=== PATIENT | female | born 1995 | race Caucasian/White ===

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

== ENCOUNTER 2017-01-20 23:22 | Emergency (ER) | payer MEDICAID ==
[~2017-01-20] VITALS: Ht 147.3 cm; Wt 81.5 kg
[2017-01-21 00:51] VITALS: BP 113/74
== END 2017-01-21 00:54 | disposition home or self-care (01) ==
LOC: ED 01-21 00:48
DX: H92.01 Otalgia, right ear (principal)
CPT/HCPCS: 99283

== ENCOUNTER 2017-04-19 19:14 | Emergency (ER) | payer MEDICAID ==
[~2017-04-19] VITALS: Ht 149.9 cm; Wt 81.7 kg
[2017-04-19 19:15] VITALS: BP 109/77
[2017-04-19] MEDS ORDERED: FAMOTIDINE 20 MG TABLET PO ONE (20:00)
[2017-04-19] MEDS ORDERED: FAMOTIDINE 20 MG TABLET ONE (20:01)
== END 2017-04-19 20:50 | disposition home or self-care (01) ==
LOC: ED 20:44
DX: L50.0 Allergic urticaria (principal)
CPT/HCPCS: 99283; J7512

== ENCOUNTER 2017-04-20 12:57 | Emergency (ER) | payer MEDICAID ==
[~2017-04-20] VITALS: Ht 149.9 cm; Wt 81.8 kg
[2017-04-20 12:58] VITALS: BP 110/74
[2017-04-20] MEDS ORDERED: FAMOTIDINE 20 MG TABLET ONE (13:20)
[2017-04-20] MEDS ORDERED: FAMOTIDINE 20 MG TABLET PO ONE (13:30)
== END 2017-04-20 13:31 | disposition home or self-care (01) ==
LOC: ED 13:24
DX: L50.9 Urticaria, unspecified (principal)
CPT/HCPCS: 99283

== ENCOUNTER 2017-06-11 18:41 | Emergency (ER) | payer MEDICAID, OTHER ==
[~2017-06-11] VITALS: Ht 149.9 cm; Wt 77.3 kg
[2017-06-11 18:54] VITALS: BP 126/85
[2017-06-11] MEDS ORDERED: ACETAMINOPHEN 325 MG TABLET PO ONE (19:30)
[2017-06-11] MEDS ORDERED: ACETAMINOPHEN 325 MG TABLET ONE (19:32)
== END 2017-06-11 20:04 | disposition home or self-care (01) ==
LOC: ED 19:36
DX: S16.1XXA Strain of muscle, fascia and tendon at neck level, initial encounter (principal); V49.49XA Driver injured in collision with other motor vehicles in traffic accident, initial encounter; Y93.89 Activity, other specified; Y92.89 Other specified places as the place of occurrence of the external cause; Y99.9 Unspecified external cause status
CPT/HCPCS: 72125; 99284

== ENCOUNTER 2017-06-25 16:15 | Emergency (ER) | payer MEDICAID, OTHER ==
[~2017-06-25] VITALS: Ht 149.9 cm; Wt 80.6 kg
[2017-06-25 16:18] VITALS: BP 118/74
[2017-06-25] MEDS ORDERED: KETOROLAC 30 MG/1 ML ONE (17:20)
[2017-06-25] MEDS ORDERED: KETOROLAC 30 MG/1 ML IM ONE (17:30)
== END 2017-06-25 17:47 | disposition home or self-care (01) ==
LOC: ED 17:41
DX: G89.11 Acute pain due to trauma (principal); M54.6 Pain in thoracic spine; V89.2XXA Person injured in unspecified motor-vehicle accident, traffic, initial encounter; Y93.89 Activity, other specified; Y92.410 Unspecified street and highway as the place of occurrence of the external cause; Y99.9 Unspecified external cause status
CPT/HCPCS: 72072; 96372; 99284; J1885

== ENCOUNTER 2017-10-28 09:13 | Emergency (ER) | payer MEDICAID, OTHER ==
[~2017-10-28] VITALS: Ht 149.9 cm; Wt 81.0 kg
[2017-10-28 09:20] VITALS: BP 106/76
[2017-10-28] MEDS ORDERED: DIPH,PERTUSS(ACELL),TET VAC/PF 0.5 ML IM-VACC ONE ×3 (11:00→11:30)
[2017-10-28] MEDS ORDERED: BACITRACIN ZINC OINT 500U/GM, 0.9 GM ONE (11:26)
== END 2017-10-28 11:58 | disposition home or self-care (01) ==
LOC: ED 11:40
DX: S91.332A Puncture wound without foreign body, left foot, initial encounter (principal); W22.8XXA Striking against or struck by other objects, initial encounter; Y93.89 Activity, other specified; Y92.098 Other place in other non-institutional residence as the place of occurrence of the external cause; Y99.8 Other external cause status
CPT/HCPCS: 90715; 96372; 99283

== ENCOUNTER 2017-12-13 23:23 | Emergency (ER) | payer MEDICAID ==
[~2017-12-13] VITALS: Ht 149.9 cm; Wt 83.0 kg
[2017-12-14] MEDS ORDERED: MAALOX/HYOSCYAMINE/LIDOCAINE 45 ML BTL ONE (00:26)
[2017-12-14] MEDS ORDERED: FAMOTIDINE 20 MG TABLET ONE (00:26)
[2017-12-14] MEDS ORDERED: MAALOX/HYOSCYAMINE/LIDOCAINE 45 ML BTL PO ONE (00:30)
[2017-12-14] MEDS ORDERED: FAMOTIDINE 20 MG TABLET PO ONE (00:30)
[2017-12-14 00:37] LABS: MICROSCOPIC NOT IND
[2017-12-14 00:39] LABS: CULTURE INDICATED? NO
[2017-12-14 00:51] LABS: BASOPHILS # (AUTO) 0.14 x10^3/uL (0-0.3); BASOPHILS % (AUTO) 2 % (0-1); EOSINOPHILS # (AUTO) 0.23 x10^3/uL (0-0.8); EOSINOPHILS % (AUTO) 3 % (1-7); LYMPHOCYTES # (AUTO) 2.88 x10^3/uL (1-6.1); LYMPHOCYTES % (AUTO) 32 % (22-44); MD NO; MEAN CORPUSCULAR HEMOGLOBIN 29.7 pg (27.0-34.8); MEAN CORPUSCULAR HGB CONC 33.9 g/dL (32.4-35.8); MEAN CORPUSCULAR VOLUME 87.7 fL (80-100); MEAN PLATELET VOLUME 7.1 fL (7.4-10.4); MONOCYTES # (AUTO) 0.49 x10^3/uL (0-1.4); MONOCYTES % (AUTO) 6 % (2-9); NEUTROPHILS % (AUTO) 58 % (42-75); PLATELET COUNT 415 x10^3/uL (130-400); RED BLOOD COUNT 4.56 x10^6/uL (3.82-5.3); RED CELL DISTRIBUTION WIDTH 14.5 % (9.6-15.2)
[2017-12-14 01:02] LABS: ALANINE AMINOTRANSFERASE 25 U/L (12-78); ALBUMIN 3.4 g/dL (3.4-5.0); ANION GAP 8 mmol/L (5-15); CALCIUM 8.1 mg/dL (8.5-10.1); CHLORIDE 108 mmol/L (98-107); CREATININE 1.09 mg/dL (0.55-1.02)
[2017-12-14 01:07] LABS: ALKALINE PHOSPHATASE 91 U/L (45-117); BILIRUBIN,TOTAL 0.2 mg/dL (0.2-1.0); TOTAL PROTEIN 7.2 g/dL (6.4-8.2)
[2017-12-14 02:14] VITALS: BP 107/80
== END 2017-12-14 02:16 | disposition home or self-care (01) ==
LOC: ED 23:59 → MERGE 23:59 → ED 12-14 02:16
DX: R10.11 Right upper quadrant pain (principal); R10.13 Epigastric pain; R11.2 Nausea with vomiting, unspecified
CPT/HCPCS: 36415; 76700; 80053; 81003; 83690; 84703; 85025; 99285

== ENCOUNTER 2018-01-25 06:15 | Emergency (ER) | payer MEDICAID ==
[~2018-01-25] VITALS: Ht 149.9 cm; Wt 83.1 kg
[2018-01-25 06:16] VITALS: BP 114/79
== END 2018-01-25 08:05 | disposition home or self-care (01) ==
LOC: ED 07:21
DX: M79.652 Pain in left thigh (principal)
CPT/HCPCS: 99283

== ENCOUNTER 2018-03-09 11:21 | Emergency (ER) | payer MEDICAID ==
[~2018-03-09] VITALS: Ht 149.9 cm; Wt 81.1 kg
[2018-03-09 11:24] VITALS: BP 106/74
[2018-03-09 12:30] LABS: BASOPHILS # (AUTO) 0.02 x10^3/uL (0-0.3); BASOPHILS % (AUTO) 0 % (0-1); EOSINOPHILS # (AUTO) 0.16 x10^3/uL (0-0.8); EOSINOPHILS % (AUTO) 2 % (1-7); LYMPHOCYTES # (AUTO) 2.44 x10^3/uL (1-6.1); LYMPHOCYTES % (AUTO) 36 % (22-44); MD NO; MEAN CORPUSCULAR VOLUME 88.1 fL (80-100); MEAN PLATELET VOLUME 7.4 fL (7.4-10.4); MONOCYTES # (AUTO) 0.36 x10^3/uL (0-1.4); MONOCYTES % (AUTO) 5 % (2-9); NEUTROPHILS # (AUTO) 3.86 x10^3/uL (1.8-8.0); NEUTROPHILS % (AUTO) 57 % (42-75); PLATELET COUNT 382 x10^3/uL (130-400); RED BLOOD COUNT 4.87 x10^6/uL (3.82-5.3); RED CELL DISTRIBUTION WIDTH 14.1 % (9.6-15.2)
== END 2018-03-09 13:42 | disposition home or self-care (01) ==
LOC: ED 12:04
DX: N92.1 Excessive and frequent menstruation with irregular cycle (principal); N93.8 Other specified abnormal uterine and vaginal bleeding; G89.29 Other chronic pain
CPT/HCPCS: 36415; 84703; 85025; 99284

== ENCOUNTER 2019-04-04 22:37 | Outpatient (CLI) | payer OTHER ==
[~2019-04-04] VITALS: Ht 149.9 cm; Wt 82.3 kg
== END 2019-04-05 00:07 | disposition home or self-care (01) ==
LOC: LDOP 22:37
PROVIDERS: ATTEND Obstetrics & Gynecology Female Pelvic Medicine and Reconstructive Surgery
DX: O62.9 Abnormality of forces of labor, unspecified (principal); Z3A.38 38 weeks gestation of pregnancy
CPT/HCPCS: 59025; 99211; G0463

== ENCOUNTER 2020-09-30 01:36 | Emergency (ER) | payer OTHER ==
[~2020-09-30] VITALS: Ht 149.9 cm; Wt 84.8 kg
[2020-09-30 01:38] VITALS: BP 120/73
--- NOTE | 2020-09-30 02:34 | NUR ---
ROSEMARY MARKS CALLED FOR PATIENT. PATIENT NOT IN LOBBY. 1ST ATTEMPT.
--- NOTE | 2020-09-30 02:49 | NUR ---
CALLED FOR PATIENT. PATIENT NOT IN LOBBY AT THIS TIME. 2ND ATTEMPT.
--- NOTE | 2020-09-30 02:54 | NUR ---
CALLED FOR PATIENT. PATIENT NOT IN LOBBY AT THIS TIME. 3RD ATTEMPT.
== END 2020-09-30 02:56 | disposition left against medical advice (07) ==
LOC: ED 02:50
DX: R10.9 Unspecified abdominal pain (principal); Z53.21 Procedure and treatment not carried out due to patient leaving prior to being seen by health care provider